=== PATIENT | male | born 1955 | race Caucasian/White ===

== ENCOUNTER 2022-04-12 07:56 | Outpatient (CLI) | payer MEDICARE, SELFPAY ==
--- NOTE | ~2022-04-12 | US_ITS ---
EXAMINATION: US aorta [facility] scrn DATE: 04/12/2022 08:42 INDICATION: Abdominal aortic aneurysm screening, history of hypertension, diabetes, obesity, and hype rcholesterolemia TECHNIQUE: Grayscale, color Doppler, and pulsed Doppler images of the aorta and common iliac arteries were obtained. COMPARISON: None. FINDINGS: The examination is limited by the patient's body habitus. Maximum vascular dimensions are as follows: Proximal aorta: 2.9 cm Mid aorta: 4.1 cm Distal aorta: Not visualized Right common iliac artery: Not visualized Left common iliac artery: Nonvisualized IMPRESSION: 1. Fusiform infrarenal abdominal aortic aneurysm measuring up to 4.1 cm. Distal aorta and bifurcation are not well evaluated. Reviewed, dictated and finalized at location A.
== END 2022-04-12 07:57 | disposition home or self-care (01) ==
PROVIDERS: PCP Family Medicine; Visit Provider Internal Medicine
DX: Z13.6 Encounter for screening for cardiovascular disorders (principal); Z82.49 Family history of ischemic heart disease and other diseases of the circulatory system; I71.4 Abdominal aortic aneurysm, without rupture
CPT/HCPCS: 76706

== ENCOUNTER 2022-09-07 14:00 | Outpatient (CLI) | payer MEDICARE, SELFPAY ==
--- NOTE | ~2022-09-07 | CT_ITS ---
EXAMINATION: CT abdomen wo con DATE: 09/07/2022 14:43 INDICATION: Abdominal aortic aneurysm. TECHNIQUE: Computed tomography (CT) of the abdomen was performed without intravenous contrast. Automa kristofer exposure control and iterative reconstruction technique were employed. The dose-length product wa s 1155.85 mGy-cm. COMPARISON: Ultrasound 04/12/2022 FINDINGS: The visualized portions of the lung bases demonstrate minimal atelectasis. No pleural effus ion. The heart size is normal. No pericardial effusion. There are coronary artery calcifications. The re is a small sliding hiatal hernia. There are surgical changes of the stomach. Calcifications in the liver are consistent with old granulomatous disease. There are changes of cholecystectomy. The splee n, pancreas, adrenal glands, and right kidney are normal. There is an 8.3 cm heterogeneous mass measu ring soft tissue attenuation in left kidney. There is fat stranding at the root of the small bowel me sentery. There is mild aortic atherosclerosis. No aneurysm. There are no dilated loops of bowel. The appendix is normal. The bladder is distended. There is mild thoracolumbar spondylosis. IMPRESSION: 1. No abdominal aortic aneurysm. 2. 8.3 cm mass of left kidney suspicious for renal cell carcinoma. Abdomen CT without and with contra st is recommended. I called this result to Dr. Kumar. 3. 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 Reviewed, dictated and finalized at location A. QUALITY ASSURANCE ANALYST IMPRESSION: 1. No abdominal aortic aneurysm. 2. 8.3 cm mass of left kidney suspicious for renal cell carcinoma. Abdomen CT w ithout and with contrast is recommended. I called this result to Dr. Kumar. 3. Fat stranding at the root of the small bowel mesentery, consistent with roslaie a versus inflammation (mesenteric panniculitis).
== END 2022-09-07 14:01 | disposition home or self-care (01) ==
LOC: ANHIMG 14:04
PROVIDERS: PCP Internal Medicine; Visit Provider Internal Medicine
DX: I71.40 Abdominal aortic aneurysm, without rupture, unspecified (principal)
CPT/HCPCS: 74150